=== PATIENT | female | born 1960 | race Two or more races ===

== ENCOUNTER 2025-05-19 18:50 | Emergency (ER) | payer OTHER ==
[~2025-05-19] VITALS: Ht 165.1 cm; Wt 97.1 kg
[2025-05-19] MEDS ORDERED: ARBLI10 MG/1 ML (19:19)
[2025-05-19] MEDS ORDERED: HUMALOG100 UNIT/2 (19:19)
[2025-05-19] MEDS ORDERED: LANTUS SOL100 UNIT/1 (19:19)
[2025-05-19] MEDS ORDERED: ORPHENADRINE CITRATE 30 MG/ML AMPUL IM ONE (19:45)
[2025-05-19] MEDS ORDERED: KETOROLAC TROMETHAMINE 60 MG VIAL IM ONE (19:45)
[2025-05-19] MEDS ORDERED: NORFLEX100MG PO (20:36)
== END 2025-05-19 21:13 | disposition home or self-care (01) ==
LOC: ER 19:49
DX: S52.591A Other fractures of lower end of right radius, initial encounter for closed fracture (principal); S52.611A Displaced fracture of right ulna styloid process, initial encounter for closed fracture; W01.0XXA Fall on same level from slipping, tripping and stumbling without subsequent striking against object, initial encounter; Y93.89 Activity, other specified; Y92.018 Other place in single-family (private) house as the place of occurrence of the external cause; I10 Essential (primary) hypertension; E11.9 Type 2 diabetes mellitus without complications; Z79.4 Long term (current) use of insulin
CPT/HCPCS: 29125; 73080; 73090; 73110; 73120; 73521; 96372; 99283; J1885; J2360